=== PATIENT | female | born 1965 | race Two or more races ===

== ENCOUNTER 2016-12-22 11:57 | Observation (INO) | payer SELFPAY ==
[2016-12-22] MEDS ORDERED: ONDANSETRON 4 MG/2 ML VIAL ONE (12:15)
--- NOTE | 2016-12-22 12:15 | CPEKG ---
Heart Rate: 76 RR Interval: 789 P-R Interval: 132 QRSD Interval: 70 QT Interval: 416 QTC Interval: 468 P [place]: 40 QRS [place]: 52 T Wave [place]: 7 EKG Severity - OTHERWISE NORMAL ECG - EKG Impression: SINUS RHYTHM EKG Impression: LOW VOLTAGE IN FRONTAL LEADS Electronically Signed By: Sherman Garcia 22-Dec-2016 13:08:47
[2016-12-22] MEDS ORDERED: NS 1,000 ML IV ONE ×2 (12:19→12:31)
[2016-12-22] MEDS ORDERED: ONDANSETRON 4 MG/2 ML VIAL IVP ONE (12:20)
[2016-12-22 12:25] LABS: % IMMATURE GRANULYOCYTES 0.4 % (0.0-1.1); ABSOLUTE IMMATURE GRANULOCYTES 0.03 10^3/uL (0.00-0.10); ADD DIFF? NO; ADD MORPH? NO; ADD SCAN? NO; ATYPICAL LYMPHOCYTE FLAG 0 (0-99); FRAGMENT RBC FLAG 0 (0-99); HEMATOCRIT 39.4 % (38.0-47.0); HEMOGLOBIN 13.2 g/dL (12.6-16.3); LEFT SHIFT FLG 0 (0-99); LIPEMIA HEMOLYSIS FLAG 80 (0-99); MEAN CELL HEMOGLOBIN 31.3 pg (27.9-34.1); MEAN CELL HEMOGLOBIN CONCENTR. 33.5 g/dL (32.4-36.7); MEAN CELL VOLUME 93.4 fL (81.5-99.8); PLATELET CLUMPS FLAG 0 (0-99); PLATELET COUNT 290 10^3/uL (150-400); RED BLOOD CELL COUNT 4.22 10^6/uL (4.18-5.33); RED CELL DISTRIBUTION WIDTH 11.8 % (11.5-15.2)
[2016-12-22 12:40] LABS: ANION GAP 11 mEq/L (8-16); CARBON DIOXIDE 22 mEq/l (22-31); CHLORIDE 107 mEq/L (97-110); CREATININE 0.8 mg/dL (0.6-1.0); GLOMERULAR FILTRATION RATE > 60; GLUCOSE 126 mg/dL (70-100); POTASSIUM 4.2 mEq/L (3.5-5.2); SODIUM 140 mEq/L (134-144)
--- NOTE | 2016-12-22 12:52 | EDPHY ---
H & P Stated Complaint: lightheaded, n/v today - Personal History LMP (Females 10-55): Post Menopausal Current Tetanus Diphtheria and Acellular Pertussis (TDAP): Unsure - Medical/Surgical History Hx Cardiac Disease: Yes Other PMH: some kind of heart problem--dr is in [place] - Social History Smoking Status: Never smoked Time Seen by Provider: 12/22/16 12:25 HPI/ROS: Chief complaint: Lightheaded History of present illness: This is a 51-year-old female who presents to the emergency department for lightheadedness. Patient with the onset of symptoms this morning. Lightheadedness described as feeling like she is going to pass out. She has had associated nausea and vomiting. Patient reports last night she had the onset of discomfort in both of her legs and is wondering if this is related to her current symptoms. No report of other precipitating factors. No alleviating factors. No other associated signs or symptoms including no fevers , no cold symptoms, no chest pain, no shortness breath or cough, no diarrhea or constipation, no urinary symptoms. Review of systems: A 10 point review of systems was obtained and other than described above was negative (Edgar Bowles) - Physical Exam Exam: General Appearance: Alert, unwell appearing, slightly diaphoretic. Eyes: Pupils equal and round no pallor or injection. ENT, Mouth: Mucous membranes moist. Respiratory: There are no retractions, lungs are clear to auscultation. Cardiovascular: Regular rate and rhythm. Gastrointestinal: Abdomen is soft and non tender, no masses, bowel sounds normal. Neurological: Alert and oriented. Strength and sensation intact and symmetrical Skin: Warm and dry, no rashes. Musculoskeletal: Neck is supple non tender. Extremities are symmetrical, full range of motion. Psychiatric: Patient is oriented X 3, there is no agitation. (Edgar Bowles) Constitutional: Initial Vital Signs Temperature (C) 36.7 C 12/22/16 11:57 Heart Rate 78 12/22/16 11:57 Respiratory Rate 18 12/22/16 11:57 Blood Pressure 85/44 L 12/22/16 11:57 O2 Sat (%) 94 12/22/16 11:57 O2 Delivery Mode Room Air Allergies/Adverse Reactions: No Known Allergies Allergy (Unverified 12/22/16 12:04) Home Medications: Medication Instructions Recorded Aspirin [Aspirin 81mg (*)] 81 mg PO HS 12/22/16 Meclizine HCl [Meclizine HCl 25 mg 25 mg PO BID PRN #20 tab 12/23/16 (RX,OTC)] Medical Decision Making - Diagnostics EKG Interpretation: An EKG obtained and was read and documented in trace view. Please see trace view for full reading and report. Sinus rhythm no acute ischemic changes ( Sherman Garcia) ED Course/Re-evaluation: Patient seen in conjunction with my secondary supervising physician Dr. Sherman Garcia. Patient presents to the emergency department dizziness, as well as nausea and vomiting. On presentation she is hypotensive and unwell appearing. Shes poorly responded to fluid resuscitations with 2 L NS although by 3rd L her pressures are systolics 90 and occasionally low 100. Workup is unremarkable. Ultimately she is admitted to the hospitalist service under the care of Dr. Krzysztof Hassan for symptomatic hypotension of unclear etiology. Plan has been discussed with the patient voiced understanding and agreement with it. (Edgar Bowles) I did evaluate this patient personally. She is hypotensive lightheaded. We will continue to bolus with fluids and evaluate. She will be admitted. She has adequate IV access. (Sherman Garcia) Differential Diagnosis: Included but not limited to cardiac dysrhythmia, ACS, PE, infections of multiple etiologies, cardiac dysrhythmia, hypovolemia (Edgar Bowles) - Data Points Laboratory Results: Laboratory Results 12/22/16 12:08 12/22/16 12:08 Medications Given: Discontinued Medications Aspirin (Aspirin) 81 mg PO HS [facility] Stop: 06/20/17 20:59 Last Admin: 12/22/16 20:00 Dose: 81 mg Cosyntropin (Cortrosyn Syringe) 0.25 mg IVP ONCE ONE Stop: 12/23/16 08:54 Last Admin: 12/23/16 09:42 Dose: 0.25 mg Sodium Chloride (Ns) 1,000 mls @ 0 mls/hr IV EDNOW ONE; Wide Open PRN Reason: Protocol Stop: 12/22/16 12:20 Last Admin: 12/22/16 12:37 Dose: 1,000 mls Sodium Chloride (Ns) 1,000 mls @ 0 mls/hr IV EDNOW ONE; Wide Open PRN Reason: Protocol Stop: 12/22/16 12:32 Last Admin: 12/22/16 12:41 Dose: 1,000 mls Sodium Chloride (Ns) 2,000 mls @ 4,000 mls/hr 30 ml/kg infuse over 30 min ( 2000 ml) IV EDNOW ONE PRN Reason: Protocol Stop: 12/22/16 13:24 Last Admin: 12/22/16 12:55 Dose: 2,000 mls Ondansetron HCl (Zofran) 4 mg IVP EDNOW ONE Stop: 12/22/16 12:21 Last Admin: 12/22/16 12:38 Dose: 4 mg Departure - Departure Disposition: [facility] Acute Clinical Impression: Hypotension Qualifiers: Hypotension type: unspecified hypotension type Qualified Code(s): I95.9 - Hypotension, unspecified Condition: Fair
[2016-12-22] MEDS ORDERED: NS 2,000 ML IV ONE (12:55)
[2016-12-22 13:02] LABS: INR 1.01 (0.83-1.16); PROTIME(PATIENT) 13.2 SEC (12.0-15.0)
[2016-12-22 13:03] LABS: APTT 23.5 SEC (23.0-38.0)
[2016-12-22] MEDS ORDERED: IOPAMIDOL (ISOVUE 370) 100 ML BTL IV ONE (13:32)
--- NOTE | 2016-12-22 13:34 | CPEKG ---
Heart Rate: 86 RR Interval: 698 P-R Interval: 128 QRSD Interval: 78 QT Interval: 396 QTC Interval: 474 P [place]: 38 QRS [place]: 11 T Wave [place]: 111 EKG Severity - ABNORMAL ECG - EKG Impression: SINUS RHYTHM EKG Impression: Dynamic T-wave changes Electronically Signed By: Sherman Garcia 22-Dec-2016 13:47:08
[2016-12-22 13:49] LABS: COLOR YELLOW; LEUKOCYTE ESTERASE,URINE NEGATIVE (NEGATIVE); NITRITE,URINE NEGATIVE (NEGATIVE)
[2016-12-22 13:57] LABS: HYALINE CASTS 15-25 /lpf (0-1); MUCUS 1+ /lpf (NONE-1+)
[2016-12-22] MEDS ORDERED: PROMETHAZINE HCL 25 MG/ML INJ IVP PRN (18:39)
[2016-12-22] MEDS ORDERED: ONDANSETRON 4 MG/2 ML VIAL IVP PRN (18:39)
[2016-12-22] MEDS ORDERED: ACETAMINOPHEN 325 MG TAB PO PRN (18:39)
[2016-12-22] MEDS ORDERED: ONDANSETRON DISINTEGRATING 4 MG TAB PO PRN (18:39)
[2016-12-22] MEDS ORDERED: MECLIZINE HCL 25 MG TAB PO PRN (18:41)
--- NOTE | 2016-12-22 19:42 | GHP ---
[f rep st] HISTORY AND PHYSICAL DATE OF ADMISSION: 12/22/2016 HISTORY OF PRESENT ILLNESS: The patient is a 51-year-old female visiting from [place] with minimal [facility] medical history, who presents with lightheadedness. History is taken via cultural centre manager, and it soun ds like it is probably lightheadedness and not vertigo, although she does endorse some vomiting and w anting to shut her eyes. She says she has been eating and drinking normally. She is not having diar brady. The vomiting was secondary to the lightheadedness as opposed to the cause of it as I understan d her story. She did not take blood pressure medicine. She does not have a cardiac history. She has not had chest pain. She has not had shortness of breath. REVIEW OF SYSTEMS: Complete 10-point review of systems conducted, negative except as noted in the HP I. Her presenting vitals: Her blood pressure is in the 80s with a pulse in the 70s. She received 4 lit ers of IV fluids with essentially no change. PAST MEDICAL HISTORY: None. ALLERGIES: None. HOME MEDICATIONS: P.r.n. aspirin. SOCIAL HISTORY: She is from [place]. Does not smoke. Drinks rare alcohol. FAMILY HISTORY: Reviewed and unremarkable. PHYSICAL EXAMINATION: VITAL SIGNS: Temp 36.6. Blood pressure now 101/65, pulse 85, breathing 18 ti mes a minute, 98% on room air. GENERAL: No acute distress. HEENT: Sclerae anicteric. Oropharynx clear. Mucous membranes moist. NECK: Supple without lymphadenopathy or JVD. LUNGS: Clear to ausc ultation bilaterally. HEART: S1, S2. ABDOMEN: Soft, nontender, nondistended. LOWER EXTREMITIES: No edema. Calves are nontender. SKIN: Without rash. NEUROLOGIC: Nonfocal. LABORATORY DATA: Sodium 140, potassium 4.2, chloride 107, bicarb 22, BUN 13, creatinine 0.8, glucose 126. Beta-hCG negative. Troponin less than 0.012. Cortisol is pending. Venous lactate is 0.8. D- dimer is elevated. UA shows hyaline casts. White count 7, hematocrit 39, platelets are 290,000. In fluenza is pending. EKG interpreted by or shows sinus at 76 with normal axis and intervals, and no ST or T-wave changes. She had a 2nd EKG that is the same, but diffusely flat T's. She had a CT of the chest showing 6 mm pulmonary nodule, but no evidence of pulmonary embolism. She also has cholelithiasis. I discussed the case with MARILU Boucher, of the emergency department. ASSESSMENT AND PLAN: 51-year-old female, who presents with lightheadedness, probable vertigo and hyp otension. 1. Hypotension. It is not clear that this is not her baseline. The patient is euvolemic with no lo calizing symptoms with no evidence of hypoperfusion. Unfortunately, orthostatics were not checked at the time of this. We will provide her with gentle intravenous fluids and follow. 2. Question vertigo. I think this may be vertigo. The language barrier despite the cultural centre manager farah s limit it a bit. I will give her as needed meclizine. She feels much better now after emergency de partment course. 3. Pulmonary nodule. I have not informed the patient of this. It would be appropriate to let her k now of this prior to discharge. 4. Prophylaxis. Pharmacologic prophylaxis indicated if in the hospital longer than 24 hours. 5. Disposition: Observation status. /[id number]/MODL
[2016-12-22] MEDS ORDERED: ASPIRIN 81 MG CHEWABLE TAB PO SCH (21:00)
[2016-12-23 05:17] LABS: ANION GAP 10 mEq/L (8-16); CALCIUM 8.6 mg/dL (8.5-10.4); CARBON DIOXIDE 21 mEq/l (22-31); CHLORIDE 113 mEq/L (97-110); CREATININE 0.7 mg/dL (0.6-1.0); GLOMERULAR FILTRATION RATE > 60; GLUCOSE 85 mg/dL (70-100); POTASSIUM 4.2 mEq/L (3.5-5.2); SODIUM 144 mEq/L (134-144)
[2016-12-23] MEDS ORDERED: COSYNTROPIN 0.25 MG/2 ML SYRINGE IVP ONE (08:53)
[2016-12-23 10:45] LABS: BILIRUBIN,TOTAL 0.4 mg/dL (0.1-1.4); BILIRUBIN-CONJUGATED 0.2 mg/dL (0.0-0.5); BILIRUBIN-UNCONJUGATED 0.2 mg/dL (0.0-1.1); TOTAL PROTEIN 5.6 g/dL (6.3-8.2)
--- NOTE | 2016-12-23 11:00 | ASMTCMCOM ---
CM Note CM Note Notes: Chart reviewed, pis a 51 y/o nicaraguan speaking female admitted w/ hypotension. Pt has a minimal past medical hx. Pt has an ECHO ordered. There are no therapies at this time. Pt will most likely discharge independent when medically stable. CM available for changes. Date Signed: 12/23/2016 10:59 AM Electronically Signed By:JAY Pickard
[2016-12-23 12:29] VITALS: BP 105/67; PULSE 65; RESP 18; TEMP 98.9; O2SAT 96
--- NOTE | 2016-12-23 14:06 | ECHO ---
[email or web address] [address] [address] Main: [phone] Fax: Transthoracic Echocardiogram Name: JYOTI BOWDEN MR#: [id number] Study Date: 12/23/2016 Study Time: 09:43 AM Date of : 1965 Age: 51 year(s) Height: 157.5 cm (62 in.) Weight: 65.77 kg (145 lb.) BSA: 1.67 m2 Gender: Female Examination: Echo Indication: Cardiac: dizziness and/or near-syncope Image Quality: Contrast: Requested by: Isac Chan BP: 107 mmHg/61 mmHg Heart Rate: Rhythm: Indication: Cardiac: dizziness and/or near-syncope Procedure Staff Ordering Physician: MILAN Supervisor [employer] Workers: Jovany Yusuf Reading Physician: Jose Daniel De La Vega Conclusions: Normal size left ventricle. Normal global systolic LV function (EF 61 %). Normal diastolic LV function. Normal size right ventricle. The mitral valve is normal in appearance and function. The aortic valve is normal in appearance and function. The tricuspid valve is normal in appearance and function. Trivial tricuspid valve regurgitation. The pulmonary artery pressure is normal. The aorta is normal. No pericardial effusion. Measurements: Chambers Valvular Assessment AV/MV Valvular Assessment TV/PV Normal Normal Normal Name Value Range Name Value Range Name Value Range Ao Shelly (MM): 2.6 cm (2.2 cm-3.7 AV Vmax: 1.45 m/s (1 m/s-1.7 TR Vmax: 2.82 mm/s ( - ) cm) m/s) TR PGmax: 32 mmHg ( - ) IVSd (2D): 0.6 cm (0.6 cm-1.1 AV maxP mmHg ( - ) syst. PAP: 37 mmHg ( - ) cm) LVOT Vmax: 0.76 m/s (0.7 m/s-1.1 PV Vmax: 0.86 cm/s (0.6 m/s-0.9 LVDd (2D): 3.9 cm (3.9 cm-5.3 m/s) m/s) cm) MV E Vmax: 0.86 cm/s ( - ) PV PGmax: 3 mmHg ( - ) LVDs (2D): 2.7 cm (2.1 cm-4 MV A Vmax: 0.67 cm/s ( - ) cm) MV E/A: 1.28 ( - ) LVPWd (2D): 0.8 cm ( - ) LVEF (2D): 61 (>=54 %) Continued Measurements: Chambers Valvular Assessment AV/MV Valvular Assessment TV/PV Patient: JYOTI BOWDEN Study Date: 12/23/2016 Page 1 of 2 09:43 AM Name Value Name Value Name Value LA Area: 11.6 cm2 MV E' Septal: 0.09 m/s CVP (est.): 5 LA Volume: 24 ml MV E/E' Septal: 9.60 LA Volume Index: 14.4 ml/m2 Findings: Left Ventricle: Normal size left ventricle. No LV hypertrophy. Normal global systolic LV function (EF 61 %). Normal diastolic LV function. Right Ventricle: Normal size right ventricle. Left Atrium: The left atrium is normal in size. Right Atrium: The right atrium is normal in size. Mitral Valve: The mitral valve is normal in appearance and function. Aortic Valve: The aortic valve is normal in appearance and function. Tricuspid Valve: The tricuspid valve is normal in appearance and function. Trivial tricuspid valve regurgitation. The pulmonary artery pressure is normal. Pulmonic Valve: The pulmonic valve is normal in appearance and function. Great Vessels: The aorta is normal. Pericardium: No pericardial effusion. (No Signature Object) Patient: JYOTI BOWDEN Study Date: 12/23/2016 Page 2 of 2 09:43 AM [id number]
--- NOTE | 2016-12-23 14:53 | PDDCSUM ---
Discharge Summary Discharge Summary: DISCHARGE SUMMARY FOLLOW-UP ITEMS: Repeat chest CT in 6-12 months DATE OF ADMISSION: 12/22/2016 DATE OF DISCHARGE: 12/23/2016 DISCHARGE DIAGNOSES: 1. Suspected benign positional paroxysmal vertigo 2. Hypotension 3. Pulmonary nodule CONSULTATIONS: None PROCEDURES / IMAGING: Echocardiogram demonstrating normal ejection fraction, no significant valvular abnormalities, carotid ultrasounds demonstrating normal anterior and posterior circulation without any notable stenoses, CT angiogram of the chest demonstrating cholelithiasis, pulmonary nodule, no evidence of pulmonary embolism CHIEF COMPLAINT: Acute dizziness and vomiting SUBJECTIVE: Patient is feeling well at time discharge, she has no recurrence of symptoms PHYSICAL EXAM ON DISCHARGE: Systolic blood pressure is 110, heart rate 60, afebrile overnight, satting well on room air, alert awake oriented x3, pain level is 0/10 LABS ON DISCHARGE: Cosyntropin stem test normal, urinalysis with hyaline casts, flu PCR negative, creatinine 0.7, potassium 4.2, normal liver panel HOSPITAL COURSE BY PROBLEM: 1. Suspected benign positional paroxysmal vertigo. The patient presented with lightheadedness and vomiting, resulting in hypotension. Given the patient's severity of symptoms as well as her concomitant hypotension, complete workup included ruling out adrenal insufficiency with a normal cosyntropin stim test, ruling out pulmonary embolism with normal CT angiogram, ruling out cardiac valvular abnormalities with a normal echocardiogram, ruling out posterior circulation defect with normal vertebrobasilar ultrasounds. The patient responded to supportive care including IV fluids, anti emetics, meclizine, and she is asymptomatic at time of discharge. I have discussed the patient's potential diagnosis with her and informed her that she may experience recurrence of symptoms, and if so, to take meclizine as needed. I have also recommended that she follow up with her primary care provider or [facility] if any further issues arise. 2. Hypertension. Acute, most likely secondary to vomiting and poor oral intake in the setting of the above symptoms, responded to IV fluids and is currently stable. DISCHARGE MEDICATIONS: Please see official discharge medication reconciliation sheet in chart , home aspirin, as needed meclizine. DISCHARGE INSTRUCTIONS: Please have repeat chest CT in 6-12 months to evaluate pulmonary nodule, follow up with primary care provider upon returning home.
--- NOTE | 2016-12-23 17:03 | ASDISCHSUM ---
Discharge Information Plan Status:Home with No Needs Medically Cleared to Leave:12/23/2016 Discharge Date:12/23/2016 03:48 PM CM D/C Disposition:Home, Routine, Self-Care ADT D/C Disposition:Home, Routine, Self-Care Projected Discharge Date:12/23/2016 12:00 AM Transportation at D/C: Discharge Delay Reason: Follow-Up Date:12/23/2016 12:00 AM Discharge Slot: Final Diagnosis: Placement Information Patient Contact Information Contact Name:NORA Relationship:Other Address:[address] [place] [address] Work Phone: City:[facility] Phone: [facility]/Zip Code:[place] [address] Email: Financial Information Financial Class:Self-Pay Primary Plan Desc:SELF PAY Primary Plan Number: Secondary Plan Desc: Secondary Plan Number: Assessment Information BC CM Progress Note CM Note CM Note Notes: Chart reviewed, pis a 51 y/o kiswahili speaking female admitted w/ hypotension. Pt has a minimal past medical hx. Pt has an ECHO ordered. There are no therapies at this time. Pt will most likely discharge independent when medically stable. CM available for changes. Date Signed: 12/23/2016 10:59 AM Electronically Signed By:JAY Pickard Intervention Information Intervention Type:*Incorrect Registration Date of Service:12/22/2016 04:00 PM Patient Type:Observation Staff Member:SARAH Wright, Monse Hours: Discipline: Severity: Comment:
== END 2016-12-23 15:48 | disposition home or self-care (01) ==
LOC: INTOOBSV 14:59 → F2W 16:31
PROVIDERS: ADMIT Internal Medicine; ATTEND Internal Medicine
DX: H81.10 Benign paroxysmal vertigo, unspecified ear (principal); I95.9 Hypotension, unspecified; R91.1 Solitary pulmonary nodule
CPT/HCPCS: 96374; G0378; J0834; J2405; Q9967